=== PATIENT | female | born 1930 | race Caucasian/White ===

== ENCOUNTER 2020-09-01 19:46 | Inpatient (IN) | payer MEDICARE, OTHER ==
[~2020-09-01] VITALS: Ht 157.5 cm; Wt 30.1 kg
[2020-09-01 21:21] LABS: Hematocrit 39.3 % (36.0-46.0); Hemoglobin 12.9 g/dL (12.2-16.2); Mean Corpuscular Hemoglobin 27.2 pg (28.0-32.0); Mean Corpuscular Hgb Conc. 32.9 g/dL (32.0-36.0); Mean Corpuscular Volume 82.6 fL (80.0-100.0); Platelet Count (auto) 139 10^3/uL (140-450); Red Blood Cells 4.76 10^6/uL (4.0-5.20); Red Cell Distribution Width 15.1 % (11.8-14.3); White Blood Cell 5.2 10^3/uL (4.4-10.8)
[2020-09-01 21:27] LABS: Band Neutrophils % (manual) 0; Basophils % (manual) 0 (0.0-2.0); Blast Cells 0; Eosinophils % (manual) 0 (0-7); Metamyelocytes % 0; Myelocytes % 0; Promyelocytes % 0; Reactive Lymphocytes 0
[2020-09-01 21:29] LABS: Amylase 44 U/L (25-115); Lipase 173 U/L (73-393)
[2020-09-01 21:31] LABS: Albumin 3.4 g/dL (3.4-5.0); Calcium 8.6 mg/dL (8.5-10.1); Potassium 4.2 mmol/L (3.5-5.1)
[2020-09-01 21:35] LABS: BUN/Creatinine Ratio 31.9; Bilirubin, Total 0.5 mg/dL (0.2-1.0); Total Protein 6.6 g/dL (6.4-8.2)
[2020-09-01 22:13] LABS: Lymphocytes % (manual) 18 (10.0-50.0); Monocytes % (manual) 16 (0-12)
[2020-09-02 00:33] LABS: Lactic Acid w/Reflex 2.1 mmol/L (0.4-2.0)
[2020-09-02 00:41] LABS: Urine Bacteria FEW /hpf (None Seen); Urine Blood 1+ /uL (Negative); Urine Mucus FEW (None Seen); Urine Specific Gravity 1.014 (1.001-1.035); Urine WBC 701 /hpf (0 - 5); Urine WBC Clumps PRESENT /hpf (None Seen)
[2020-09-02] MEDS ORDERED: ONDANSETRON HCL 4 MG/2 ML VIAL IV PRN (02:45)
[2020-09-02] MEDS ORDERED: ACETAMINOPHEN 325 MG TAB PO PRN (02:45)
[2020-09-02] MEDS ORDERED: levoFLOXacin 500MG 100 ML IV ONE (02:45)
[2020-09-02] MEDS ORDERED: SODIUM CHLORIDE 0.9% 1,000 ML IV SCH (02:45)
[2020-09-02] MEDS ORDERED: NITROGLYCERIN 0.4 MG SL TAB SL PRN (02:45)
[2020-09-02] MEDS ORDERED: MORPHINE SULF INJ 2 MG/ML SYRINGE 1ML IV PRN (02:45)
[2020-09-02 05:00] LABS: Magnesium 2.2 mg/dL (1.6-2.6)
[2020-09-02 05:09] LABS: CRP High Sensitivity 1.21 mg/dL (< 0.3)
[2020-09-02 06:54] VITALS: BP 118/40
[2020-09-02] MEDS ORDERED: SENN-195 PO (07:25)
[2020-09-02] MEDS ORDERED: HYDR-4833 PO (07:25)
[2020-09-02] MEDS ORDERED: ASPI-543 PO (07:25)
[2020-09-02] MEDS ORDERED: LOPE2CAP14 PO (07:25)
[2020-09-02] MEDS ORDERED: AMLO5TAB15 PO (07:25)
[2020-09-02] MEDS ORDERED: LACT10SO3 PO (07:25)
[2020-09-02] MEDS ORDERED: ACET-1156 PO (07:25)
[2020-09-02] MEDS ORDERED: LISI-646 PO (07:25)
[2020-09-02] MEDS ORDERED: LEVO50TA7 PO (07:25)
[2020-09-02] MEDS ORDERED: METO25TA5 PO (07:25)
[2020-09-02] MEDS ORDERED: BISA-4 PO (07:25)
[2020-09-02] MEDS ORDERED: LEVOTHYROXINE SODIUM 25 MCG TAB PO ONE (07:30)
[2020-09-02 08:00] VITALS: BP 152/93
[2020-09-02] MEDS: FAMOTIDINE 20 MG TAB PO SCH (08:28)
[2020-09-02] MEDS: ASCORBIC ACID 1,000 MG TAB PO SCH (08:28)
[2020-09-02] MEDS: CHOLECALCIFEROL (VITD3) 2,000 UNIT CAP PO SCH (08:28)
[2020-09-02] MEDS: ZINC SULFATE 220mg CAP or TAB PO SCH (08:28)
[2020-09-02] MEDS: DexAMETHasone SOD PHOS 10MG/1ML VIAL INJ IV SCH (08:28)
[2020-09-02] MEDS: ENOXAPARIN SOD 40 MG/0.4 ML SYRINGE SC SCH (08:29)
[2020-09-02 09:00] VITALS: BP 152/93
[2020-09-02] MEDS ORDERED: levoFLOXacin 500MG 100 ML IV SCH (10:00)
[2020-09-02] MEDS ORDERED: IOHEXOL 350 MG/ML 100ML IJ ONE (10:09)
[2020-09-02] MEDS ORDERED: FUROSEMIDE 20 MG/2 ML VIAL IV ONE (15:30)
[2020-09-02] MEDS ORDERED: DEXTROSE (50%) 50ML SYRG IV PRN (15:30)
[2020-09-02] MEDS ORDERED: LACTULOSE 20Gm/30ML SOLN PO PRN (15:45)
[2020-09-02 16:55] VITALS: BP 96/49
[2020-09-02] MEDS: ACCU-CHEK COMFORT CURVE STRIP VI SCH ×2 (17:00→21:50)
[2020-09-02] MEDS: InsuLIN REG 1unit/0.01ml Soln (100units/ml) SC SCH ×2 (17:00→21:50)
[2020-09-02 20:00] VITALS: BP 131/72
[2020-09-02] MEDS: DOCUSATE SOD 100 MG CAP PO SCH (21:50)
[2020-09-02] MEDS: DOXYCYCLINE 100 MG TAB/CAP PO SCH (21:50)
[2020-09-02 22:00] VITALS: BP 131/72
[2020-09-02] MEDS: ALBUTEROL SULF HFA 90MCG INH 200DOSE IN SCH (22:20)
[2020-09-02] MEDS: BUDESONIDE (INHALATION) 180 MCG IH IN SCH (22:20)
[2020-09-03 02:43] VITALS: BP 131/72
[2020-09-03 05:00] VITALS: BP 106/51
[2020-09-03] MEDS: ACCU-CHEK COMFORT CURVE STRIP VI SCH ×4 (06:21→22:21)
[2020-09-03] MEDS: InsuLIN REG 1unit/0.01ml Soln (100units/ml) SC SCH ×4 (06:21→22:00)
[2020-09-03 06:26] LABS: Hematocrit 39.4 % (36.0-46.0); Mean Corpuscular Hemoglobin 27.3 pg (28.0-32.0); Mean Corpuscular Hgb Conc. 32.9 g/dL (32.0-36.0); Mean Corpuscular Volume 82.8 fL (80.0-100.0); Platelet Count (auto) 118 10^3/uL (140-450); Red Blood Cells 4.76 10^6/uL (4.0-5.20); Red Cell Distribution Width 14.7 % (11.8-14.3); White Blood Cell 2.6 10^3/uL (4.4-10.8)
[2020-09-03 06:39] LABS: Potassium 4.1 mmol/L (3.5-5.1)
[2020-09-03 06:44] LABS: Band Neutrophils % (manual) 0; Basophils % (manual) 0 (0.0-2.0); Blast Cells 0; Eosinophils % (manual) 0 (0-7); Metamyelocytes % 0; Myelocytes % 0; Promyelocytes % 0; Reactive Lymphocytes 0
[2020-09-03 06:47] LABS: Albumin 3.4 g/dL (3.4-5.0); Bilirubin, Total 0.5 mg/dL (0.2-1.0); Calcium 8.8 mg/dL (8.5-10.1); Magnesium 2.4 mg/dL (1.6-2.6); Total Protein 6.9 g/dL (6.4-8.2)
[2020-09-03] MEDS ORDERED: LEVOTHYROXINE SODIUM 25 MCG TAB PO SCH (07:00)
[2020-09-03 07:08] LABS: Lymphocytes % (manual) 29 (10.0-50.0); Monocytes % (manual) 14 (0-12)
[2020-09-03] MEDS: ALBUTEROL SULF HFA 90MCG INH 200DOSE IN SCH ×3 (07:50→22:56)
[2020-09-03] MEDS: BUDESONIDE (INHALATION) 180 MCG IH IN SCH ×2 (07:51→22:56)
[2020-09-03 09:00] VITALS: BP 99/48
[2020-09-03] MEDS: FUROSEMIDE 20 MG/2 ML VIAL IV SCH (10:00)
[2020-09-03] MEDS ORDERED: levoFLOXacin 250MG 50 ML IV SCH (10:00)
[2020-09-03] MEDS: DOCUSATE SOD 100 MG CAP PO SCH ×2 (10:23→21:54)
[2020-09-03] MEDS: POTASSIUM CHL 10 Meq TABLET PO SCH (10:23)
[2020-09-03] MEDS: DexAMETHasone SOD PHOS 10MG/1ML VIAL INJ IV SCH (10:23)
[2020-09-03] MEDS: ZINC SULFATE 220mg CAP or TAB PO SCH (10:23)
[2020-09-03] MEDS: CHOLECALCIFEROL (VITD3) 2,000 UNIT CAP PO SCH (10:25)
[2020-09-03] MEDS: ENOXAPARIN SOD 40 MG/0.4 ML SYRINGE SC SCH (10:25)
[2020-09-03] MEDS: FAMOTIDINE 20 MG TAB PO SCH (10:25)
[2020-09-03] MEDS: ASCORBIC ACID 1,000 MG TAB PO SCH (10:25)
[2020-09-03] MEDS: DOXYCYCLINE 100 MG TAB/CAP PO SCH ×2 (10:25→21:54)
[2020-09-03 13:00] VITALS: BP 103/50
[2020-09-03 17:00] VITALS: BP 107/47
[2020-09-03 22:00] VITALS: BP 117/46
[2020-09-04 05:00] VITALS: BP 111/58
[2020-09-04] MEDS: ACCU-CHEK COMFORT CURVE STRIP VI SCH ×4 (06:18→20:51)
[2020-09-04] MEDS: InsuLIN REG 1unit/0.01ml Soln (100units/ml) SC SCH ×4 (06:23→20:51)
[2020-09-04] MEDS: ALBUTEROL SULF HFA 90MCG INH 200DOSE IN SCH ×3 (07:39→22:12)
[2020-09-04] MEDS: BUDESONIDE (INHALATION) 180 MCG IH IN SCH ×2 (07:40→22:12)
[2020-09-04 09:00] VITALS: BP 110/52
[2020-09-04] MEDS: DOCUSATE SOD 100 MG CAP PO SCH ×2 (09:43→20:32)
[2020-09-04] MEDS: FAMOTIDINE 20 MG TAB PO SCH (09:43)
[2020-09-04] MEDS: ASCORBIC ACID 1,000 MG TAB PO SCH (09:43)
[2020-09-04] MEDS: ENOXAPARIN SOD 30 MG/0.3 ML SYRINGE SC SCH (09:43)
[2020-09-04] MEDS: ZINC SULFATE 220mg CAP or TAB PO SCH (09:43)
[2020-09-04] MEDS: CHOLECALCIFEROL (VITD3) 2,000 UNIT CAP PO SCH (09:43)
[2020-09-04] MEDS: POTASSIUM CHL 10 Meq TABLET PO SCH (10:00)
[2020-09-04] MEDS: DexAMETHasone SOD PHOS 10MG/1ML VIAL INJ IV SCH (10:00)
[2020-09-04] MEDS: FUROSEMIDE 20 MG/2 ML VIAL IV SCH (10:31)
[2020-09-04] MEDS: DOXYCYCLINE 100 MG TAB/CAP PO SCH ×2 (10:31→20:33)
[2020-09-04 12:43] VITALS: BP 96/41
[2020-09-04 16:54] VITALS: BP 101/56
[2020-09-04 22:00] VITALS: BP 105/60
[2020-09-05 05:00] VITALS: BP 120/55
[2020-09-05] MEDS: InsuLIN REG 1unit/0.01ml Soln (100units/ml) SC SCH ×4 (05:39→22:00)
[2020-09-05] MEDS: ACCU-CHEK COMFORT CURVE STRIP VI SCH ×4 (05:39→22:49)
[2020-09-05 07:05] LABS: Basophils # (auto) 0 10 ^3/uL (0-0.2); Basophils % (auto) 0.1 % (0.0-2.0); Eosinophils # (auto) 0 10 ^3/uL (0-0.8); Hematocrit 40.8 % (36.0-46.0); Hemoglobin 13.6 g/dL (12.2-16.2); Lymphocytes # (auto) 0.7 10 ^3/uL (0.4-5.4); Mean Corpuscular Hemoglobin 27.2 pg (28.0-32.0); Mean Corpuscular Hgb Conc. 33.4 g/dL (32.0-36.0); Mean Corpuscular Volume 81.6 fL (80.0-100.0); Monocytes # (auto) 0.9 10 ^3/uL (0-1.3); Monocytes % (auto) 14.5 % (0.0-12.0); Neutrophils # (auto) 4.7 10 ^3/uL (1.6-8.6); Neutrophils % (auto) 74.4 % (37.0-80.0); Platelet Count (auto) 115 10^3/uL (140-450); Red Cell Distribution Width 15.1 % (11.8-14.3); White Blood Cell 6.3 10^3/uL (4.4-10.8)
[2020-09-05] MEDS: ALBUTEROL SULF HFA 90MCG INH 200DOSE IN SCH ×3 (07:18→23:10)
[2020-09-05] MEDS: BUDESONIDE (INHALATION) 180 MCG IH IN SCH ×2 (07:19→23:10)
[2020-09-05 09:19] VITALS: BP 101/55
[2020-09-05] MEDS: CHOLECALCIFEROL (VITD3) 2,000 UNIT CAP PO SCH (10:00)
[2020-09-05] MEDS: ZINC SULFATE 220mg CAP or TAB PO SCH (10:00)
[2020-09-05] MEDS: DOCUSATE SOD 100 MG CAP PO SCH ×2 (10:00→22:11)
[2020-09-05] MEDS: FAMOTIDINE 20 MG TAB PO SCH (10:00)
[2020-09-05] MEDS: ASCORBIC ACID 1,000 MG TAB PO SCH (10:00)
[2020-09-05] MEDS: POTASSIUM CHL 10 Meq TABLET PO SCH (10:01)
[2020-09-05] MEDS: DexAMETHasone SOD PHOS 10MG/1ML VIAL INJ IV SCH (10:01)
[2020-09-05] MEDS: FUROSEMIDE 20 MG/2 ML VIAL IV SCH (10:01)
[2020-09-05] MEDS: DOXYCYCLINE 100 MG TAB/CAP PO SCH ×2 (10:01→22:11)
[2020-09-05] MEDS: ENOXAPARIN SOD 30 MG/0.3 ML SYRINGE SC SCH (10:02)
[2020-09-05 13:22] VITALS: BP 118/56
[2020-09-05 16:54] VITALS: BP 108/60
[2020-09-05] MEDS: Ensure Enlive Chocolate 8oz Bottle PO SCH (18:00)
[2020-09-05 22:00] VITALS: BP 115/55
[2020-09-06 01:43] VITALS: BP 115/55
[2020-09-06 05:00] VITALS: BP 111/50
[2020-09-06] MEDS: InsuLIN REG 1unit/0.01ml Soln (100units/ml) SC SCH ×3 (06:03→17:00)
[2020-09-06] MEDS: ACCU-CHEK COMFORT CURVE STRIP VI SCH ×3 (06:03→17:10)
[2020-09-06 09:54] VITALS: BP 121/60
[2020-09-06] MEDS: BUDESONIDE (INHALATION) 180 MCG IH IN SCH (10:00)
[2020-09-06] MEDS: ZINC SULFATE 220mg CAP or TAB PO SCH (10:00)
[2020-09-06] MEDS: DOXYCYCLINE 100 MG TAB/CAP PO SCH (10:00)
[2020-09-06] MEDS: FUROSEMIDE 20 MG/2 ML VIAL IV SCH (10:00)
[2020-09-06] MEDS: DexAMETHasone SOD PHOS 10MG/1ML VIAL INJ IV SCH (10:00)
[2020-09-06] MEDS: FAMOTIDINE 20 MG TAB PO SCH (10:00)
[2020-09-06] MEDS: POTASSIUM CHL 10 Meq TABLET PO SCH (10:00)
[2020-09-06] MEDS: ENOXAPARIN SOD 30 MG/0.3 ML SYRINGE SC SCH (10:00)
[2020-09-06] MEDS: CHOLECALCIFEROL (VITD3) 2,000 UNIT CAP PO SCH (10:00)
[2020-09-06] MEDS: ASCORBIC ACID 1,000 MG TAB PO SCH (10:00)
[2020-09-06] MEDS: DOCUSATE SOD 100 MG CAP PO SCH (10:00)
[2020-09-06 10:51] LABS: Basophils # (auto) 0 10 ^3/uL (0-0.2); Eosinophils # (auto) 0 10 ^3/uL (0-0.8); Hematocrit 42.7 % (36.0-46.0); Hemoglobin 14.3 g/dL (12.2-16.2); Lymphocytes % (auto) 10.4 % (10.0-50.0); Mean Corpuscular Hemoglobin 27.4 pg (28.0-32.0); Mean Corpuscular Hgb Conc. 33.4 g/dL (32.0-36.0); Monocytes % (auto) 11.1 % (0.0-12.0); Neutrophils # (auto) 7.3 10 ^3/uL (1.6-8.6); Neutrophils % (auto) 78.5 % (37.0-80.0); Platelet Count (auto) 124 10^3/uL (140-450); Red Blood Cells 5.21 10^6/uL (4.0-5.20); Red Cell Distribution Width 15.2 % (11.8-14.3); White Blood Cell 9.3 10^3/uL (4.4-10.8)
[2020-09-06 11:03] LABS: BUN/Creatinine Ratio 42.9; Calcium 9.6 mg/dL (8.5-10.1); Potassium 3.5 mmol/L (3.5-5.1)
[2020-09-06] MEDS: Ensure Enlive Chocolate 8oz Bottle PO SCH (11:37)
[2020-09-06] MEDS ORDERED: ASCO10003 PO (12:48)
[2020-09-06] MEDS ORDERED: ZINC220T6 PO (12:48)
[2020-09-06] MEDS ORDERED: LEVO500T21 PO (12:50)
[2020-09-06 14:00] VITALS: BP 126/50
[2020-09-06] MEDS: ALBUTEROL SULF HFA 90MCG INH 200DOSE IN SCH (14:36)
== END 2020-09-06 18:24 | disposition hospice, home (50) | DRG 871 ==
LOC: EDBD 19:46 → ER 19:46 → TELE 19:47 → TELE-EAST 09-02 06:23
PROVIDERS: ADMIT Nurse Practitioner; ATTEND Internal Medicine
DX: A41.89 Other specified sepsis (principal); U07.1 COVID-19; J96.01 Acute respiratory failure with hypoxia; N39.0 Urinary tract infection, site not specified; N20.0 Calculus of kidney; K59.00 Constipation, unspecified; E03.9 Hypothyroidism, unspecified; I10 Essential (primary) hypertension; F03.90 Unspecified dementia, unspecified severity, without behavioral disturbance, psychotic disturbance, mood disturbance, and anxiety; J43.9 Emphysema, unspecified; K57.30 Diverticulosis of large intestine without perforation or abscess without bleeding; Z66 Do not resuscitate
CPT/HCPCS: 36415; 70450; 71045; 71275; 74176; 80048; 80053; 81001; 82150; 82565; 82728; 82962; 83605; 83615; 83690; 83735; 84443; 85007; 85025; 85027; 85379; 86141; 87040; 87081; 87086; 87426; 87804; 94640; 97110; 97116; 97530; G0378; J1100; J1815; J1956